=== PATIENT | female | born 1985 | race Caucasian/White ===

== ENCOUNTER 2024-12-10 09:49 | Day surgery (SDC) | payer BC, SELFPAY ==
[2024-12-10 10:19] VITALS: BMI 23.1
[2024-12-10 10:24] VITALS: BP 118/74; PULSE 67; RESP 16; TEMP 36.7; O2SAT 100
[2024-12-10 10:35] LABS: Ur HCG Qualitative* Negative (Negative)
[2024-12-10] MEDS: 0.9 % SODIUM CHLORIDE 500 ML 500 ML 100 ML IV (10:40)
[2024-12-10] MEDS: SODIUM CHLORIDE 0.9 % (FLUSH) 10 ML SYRINGE IVF (10:41)
--- NOTE | 2024-12-10 12:11 | W.PM.H&PU ---
History & Physical Update History & Physical Update H&P Reviewed and patient assessed: No changes noted
[2024-12-10] MEDS: CEFAZOLIN 1 GM inj IVP (12:15)
[2024-12-10] MEDS: BUPIVACAINE LIPOSOME 133 MG/10 ML INJ INFILTRATI (12:24)
[2024-12-10] MEDS: BUPIVACAINE 0.25% 30 ML INJECTION (12:24)
--- NOTE | 2024-12-10 12:59 | P.ANES_ITS ---
Anesthesia Charges Start Date/Time Anesthesia Start Date: 12/10/24 Anesthesia Start Time: 12:07 Stop Date/Time Anesthesia Stop Date: 12/10/24 Anesthesia Stop Time: 12:59 Coding CPT Codes CPT Codes: ANESTH ANORECTAL SURGERY - 47670 ([id number]) P2 - PATIENT W/MILD SYST DISEASE, QK - HOSE MAKER 2-4 CNCRNT ANES PROC, QX - INCINERATOR ATTENDANT SVC W/ MD MED DIRECTION
--- NOTE | 2024-12-10 12:59 | W.ANESCHARGE ---
Anesthesia Charges Start Date/Time Anesthesia Start Date: 12/10/24 Anesthesia Start Time: 12:07 Stop Date/Time Anesthesia Stop Date: 12/10/24 Anesthesia Stop Time: 12:59 Coding CPT Codes CPT Codes: ANESTH ANORECTAL SURGERY - 04744 ([id number]) P2 - PATIENT W/MILD SYST DISEASE, QK - ELECTRICAL AND INSTRUMENT MECHANIC 2-4 CNCRNT ANES PROC, QX - B AND B GANG WORKER SVC W/ MD MED DIRECTION
[2024-12-10 13:00] VITALS: BP 115/73; PULSE 89; RESP 16; TEMP 36.2; O2SAT 100
--- NOTE | 2024-12-10 13:00 | P.ANES_ITS ---
Anesthesia Charges Start Date/Time Anesthesia Start Date: 12/10/24 Anesthesia Start Time: 12:07 Stop Date/Time Anesthesia Stop Date: 12/10/24 Anesthesia Stop Time: 12:59 Coding CPT Codes CPT Codes: ANESTH ANORECTAL SURGERY - 02109 ([id number]) P1 - NORMAL HEALTHY PATIENT, QX - STRAIGHT LINE PRESS SETTER TOSIN W/ MED DIRECTION, QK - BASEBALL SCOUT 2-4 CNCRNT ANES PROC
--- NOTE | 2024-12-10 13:00 | W.ANESCHARGE ---
Anesthesia Charges Start Date/Time Anesthesia Start Date: 12/10/24 Anesthesia Start Time: 12:07 Stop Date/Time Anesthesia Stop Date: 12/10/24 Anesthesia Stop Time: 12:59 Coding CPT Codes CPT Codes: ANESTH ANORECTAL SURGERY - 98536 ([id number]) P1 - NORMAL HEALTHY PATIENT, QX - PASSENGER ELEVATOR OPERATOR TOSIN W/ MED DIRECTION, QK - IMMIGRATION INVESTIGATOR 2-4 CNCRNT ANES PROC
[2024-12-10 13:15] VITALS: BP 117/80; PULSE 88; RESP 16; O2SAT 100
--- NOTE | 2024-12-10 13:26 | P.GSOP_ITS ---
Operative Note Date of procedure: 12/10/24 Pre-op diagnosis: Perianal skin tags Post-op diagnosis: Perianal skin tags, rectal polyp Type of Procedure: Excision of perianal skin tags, excision of rectal polyp Indications: Patient is a 39-year-old female who presented to clinic with symptomatic perianal skin tags. Please see consultation note for full discussion. Risks and benefits of operative intervention were discussed at length with the patient. Risks included but was not limited to: Bleeding, infection, risk of damage to surrounding structures, possible need for additional procedures and postoperative complications such as pneumonia, pulmonary emboli or HI. All questions and concerns were addressed with the patient agreeing to proceed. Procedure Description: After discussing the risks and benefits of the procedure, the patient signed informed consent.? The operative site was marked and the patient was brought to the operating room and placed on the operating table in supine position.? Care was taken to pad the patient's pressure points.?? The patient was then given se dation by anesthesia.?? Patient was then placed prone roopa-knife. The operative site was then prepped and draped in the usual sterile fashion.? A time-out was then performed. External examination, digital rectal examination, and anoscopic examination were all done and revealed significantly 2 small perianal skin tags, anterior midline. An elliptical incision was made with needle-tip electrocautery, removing the excess tissue and taking care to stay above the underlying muscle. Hemostasis was assured with cautery. Both wounds were closed in a running locked manner starting at the apex with 4-0 chromic suture, coming out to the anoderm then running back in a simple fashion and tying down. Both specimens were sent in the same jar to pathology. A 5 mm rectal polyp was also appreciated during my examination posterior midline. This did appear to prolapse out. The cautery was used to establish the proper planning and the specimen removed with the LigaSure device. This was sent to pathology in a separate jar for analysis. Care was taken to preserve mucosa for a tension-free closure. The wound was closed in a running locked manner with 4-0 chromic, similar to what is described above. The patient tolerated procedure well. There were no apparent complications. Instrument, sponge, and needle counts were correct at the end of the case. Sterile dressings were then applied. ? The patient was then woken and transported to the recovery area in stable condition. ? The patient tolerated the procedure well. Findings: Two small perianal skin tags. 5 mm rectal polyp Anesthesia: MAC Surgeon: Keesha Beatty MD Estimated blood loss (mL): 5 Additional Specimen Information: Perianal skin tags, rectal polyp Condition: stable Disposition: PACU
[2024-12-10 13:30] VITALS: BP 118/77; PULSE 87; RESP 16; O2SAT 100
[2024-12-10] MEDS: HYDROCODONE-ACETAMIN 5-325 MG 1 TAB PO (13:34)
[2024-12-10 13:45] VITALS: BP 117/77; PULSE 84; RESP 16; O2SAT 100
[2024-12-10 14:00] VITALS: BP 117/71; PULSE 75; RESP 16; O2SAT 100
== END 2024-12-10 13:11 | disposition home or self-care (01) ==
PROVIDERS: PCP Family Medicine; Visit Provider Surgery
PROC: (CPT 46230; principal; 2024-12-10 11:15)
DX: K64.4 Residual hemorrhoidal skin tags (principal); K62.1 Rectal polyp
CPT/HCPCS: 46230; 46615; 00902; 81025; 88304; 88305; A9270; J0665; J0666; J0690; J2250; J2405; J2704; J3010; J3490; J7030